=== PATIENT | female | born 1950 | race Caucasian/White ===

== ENCOUNTER 2019-06-16 13:39 | Inpatient (IN) | payer OTHER ==
[~2019-06-16] VITALS: Ht 157.5 cm; Wt 93.0 kg
[2019-06-16 13:47] VITALS: Ht 157.5 cm; Wt 93.0 kg
--- NOTE | 2019-06-16 14:03 | NUR ---
EKG IN PROGRESS
--- NOTE | 2019-06-16 14:03 | NUR ---
MSE COMPLETED BY DR BRAY
--- NOTE | 2019-06-16 14:28 | NUR ---
LAB BLOOD DRAW COMPLETED
--- NOTE | 2019-06-16 14:32 | NUR ---
PORTABLE CXR AT BEDSIDE
--- NOTE | 2019-06-16 14:35 | NUR ---
PT TO CT VIA BEAU
--- NOTE | 2019-06-16 14:50 | NUR ---
PT BACK FROM CT WITH NO INCIDENT
[2019-06-16 14:52] LABS: BASOPHIL % 0.1 % (0-2); PLATELET COUNT 331 x10^3mcL (130-400)
[2019-06-16 14:56] LABS: RED CELL DISTRIBUTION WIDTH 16.1 % (11.5-14.5)
--- NOTE | 2019-06-16 15:19 | NUR ---
IV ESTABLISHED, IVF INFUSION STARTED, INFUSING WITH NO PROBLEM. PT AAOX4 NO DISTRESS ON FULL CM WILL MONITOR
[2019-06-16 15:25] LABS: BILIRUBIN TOTAL 0.5 mg/dL (0.20-1.00); CALCIUM 9.1 mg/dL (8.5-10.1); CARBON DIOXIDE 38.6 mmol/L (21-32); CREATININE SERUM 2.6 mg/dL (0.6-1.0); TOTAL PROTEIN, SERUM 8.1 g/dL (6.4-8.2)
[2019-06-16 15:30] LABS: ALBUMIN 2.8 g/dL (3.4-5.0)
--- NOTE | 2019-06-16 17:00 | NUR ---
DR BRAY ADVISED OF PTS HR, NEW ORDER WILL BE ENTERED.
--- NOTE | 2019-06-16 17:17 | NUR ---
PT ASSISTED TO BATHROOM VOIDED X 1 UNABLE TO OBTAIN URINE SAMPLE WHEN PT WAS VOIDING.
[2019-06-16] MEDS ORDERED: LASIX20 MG (17:27)
[2019-06-16] MEDS ORDERED: NATURE'S BLEND500 M3 (17:27)
[2019-06-16] MEDS ORDERED: [UNRECOGNIZED DRUG - CODE] (17:28)
[2019-06-16] MEDS ORDERED: ENALAPRIL MALE2.5 MG (17:28)
[2019-06-16] MEDS ORDERED: HYDROCHLOROTHIA25 MG (17:28)
[2019-06-16] MEDS ORDERED: VITAMIN-D1000 IU (17:29)
[2019-06-16] MEDS ORDERED: TAMOXIFEN CITRA20 MG (17:29)
[2019-06-16] MEDS ORDERED: ASPIR 8181 MG (17:29)
--- NOTE | 2019-06-16 17:43 | NUR ---
PT TO TELE FLOOR VIA CORY IN NO DISTRESS ON FULL CM, NOEL RN RESUMING CARE OF PT
--- NOTE | 2019-06-16 17:45 | NUR ---
RECEIVED PT FROM ER. STABLE. DENIES ANY CHEST PAIN. APPLIED TELE READING AFIB WITH RVR, DR.KIM CASTRO AWARE. PT RECIVED CARDIZEM IV X2 DOSE IN ER. STARTING METOPROLOL PO SOON. NO SOB NOTED. NO DISTRESS NOTED.
[2019-06-16 18:52] VITALS: BP 112/74
--- NOTE | 2019-06-16 19:07 | NUR ---
RECEIVED PT FROM ER, PT ADMIT FOR ACUTE ABD PAIN, DIVERTILCULITIS, A.FIB. PT IS A/O X4, VERBAL RESPONSIVE. LUNG SOUND CLEAR BILATERAL, NO COUGH, NO SOB. PT IS ON TELE 2, A.FIB AND RVR AT THIS MOMENT, DENY ANY CHEST PAIN OR DISCOMFORT. BOWEL SOUND PRESENT ALL 4 QUADRANTS, NO DISTENTION, NO TENDER. PEDAL PULSE PRESENT BOTH FEET, +1 EDEMA BLE. BLE DARK DISCOLORATION NOTED. IV AT LEFT SHOULDER. DRESSING INTACT. ALL ADLS ASSIST, ALL NEED MET, CALL LIGHT IN REACH, WILL CONTINUE TO MONITOR.
--- NOTE | 2019-06-16 19:25 | NUR ---
PT IS STABLE. GAVE REPORT TO EDUCATION ASSOCIATE NURSE.
--- NOTE | 2019-06-16 20:07 | NUR ---
RECEIVED PATIENT IN BED AWAKE, ALERT AND ORIENTED WITH NO C/0 ABDOMINAL DISCOMFORT AT THIS TIME. ABDOMEN ROUND, OBESE AND NONTENDER WITH ACTIVE BS. TELE# 2 AFIB WITH RVR ON MONITOR, DENIES CHEST DISCOMFORT. WITH ADMISSION ORDWERS AND TO CARRY OUT. EDEMA +1 NOTED TO BLE. IV TO LEFT UPPER SHOULDER INTACT AND INFUSING WELL. WILL CONTINUE TO MONITOR. CALL LIGHT WITHIN REACH.
[2019-06-16 21:13] VITALS: BP 105/54
--- NOTE | 2019-06-17 00:42 | NUR ---
AWAKE C/O AGITATION, ATIVAN 1MG PO GIVEN PRESCRIBED. WILL CONTINUE TO MONITOR.
[2019-06-17 00:44] VITALS: BP 89/53
[2019-06-17 04:30] LABS: UA SPECIFIC GRAVITY <=1.005 (1.005-1.035); microscopic required? YES; urine erythrocyte 1+ (NEGATIVE)
--- NOTE | 2019-06-17 05:15 | NUR ---
SLEPT FAIRLY, HAD BM X1 LOOSE IN MODERATE AMOUNT. ALL NEEDS ATTENDED.
[2019-06-17 05:43] VITALS: BP 93/64
[2019-06-17 06:35] LABS: BASOPHIL % 0.4 % (0-2); PLATELET COUNT 258 x10^3mcL (130-400)
[2019-06-17 06:48] LABS: BILIRUBIN TOTAL 0.43 mg/dL (0.20-1.00); CALCIUM 7.8 mg/dL (8.5-10.1); CARBON DIOXIDE 35.9 mmol/L (21-32); CREATININE SERUM 2.1 mg/dL (0.6-1.0); MAGNESIUM 1.6 mg/dL (1.8-2.4); POTASSIUM SERUM 3.9 mmol/L (3.5-5.1)
[2019-06-17 06:49] LABS: RED CELL DISTRIBUTION WIDTH 16.3 % (11.5-14.5)
[2019-06-17 06:59] LABS: TOTAL PROTEIN, SERUM 6.1 g/dL (6.4-8.2)
--- NOTE | 2019-06-17 07:50 | NUR ---
RECEIVED PATIENT RESTING IN BED, NO ACUTE DISTRESS NOTED. PATIENT A/OX4, DENIES HEADACHE. TELE MONITOR IN PLACE. EDEMA NOTED TO BLE, PATIENT AWARE TO MAINTAIN BLE ELEVATED. PATIENT DENIES SOB, ON ROOM AIR. PATIENT AMBULATORY WITH NO ASSIST. IV TO L SHOULDER CDI&PATENT, NO S/S OF INFILTRATION. LR INFUSING AT 80ML/HR. CALL LIGHT WITHIN REACH, BED IN LOW POSITION. WILL CONTINUE TO MONITOR FOR CHANGES.
[2019-06-17 08:52] VITALS: BP 112/65
--- NOTE | 2019-06-17 09:30 | NUR ---
DR. GUERRIER MADE AWARE PATIENT DID NOT RECEIVE LOPRESSOR DURING NIGHT NURSE SHIFT DUE TO LOW BP; DR. GUERRIER GAVE VERBAL ORDER TO GIVE LOPRESSOR WITH SBP>80. WILL CARRY OUT ORDERS AND ENDORSE TO NIGHT RN.
--- NOTE | 2019-06-17 11:20 | NUR ---
DR. GUERRIER AWARE PATIENT MAG WAS 1.7, DR. GUERRIER ORDER MAG RIDER. MAG RIDER GIVEN AT THIS TIME. WILL CONTINUE TO MONITOR.
[2019-06-17 11:34] VITALS: BP 109/77
--- NOTE | 2019-06-17 12:20 | NUR ---
DR. GUERRIER AWARE PATIENT IS C/O CONTINOUS LOOSE STOOLS, PATIENT REQUESTED FOR SHOWER. DR. GUERRIER GAVE VERBAL ORDER FOR OKAY TO SHOWER, WILL CARRY OUT ORDERS AT THIS TIME.
--- NOTE | 2019-06-17 12:21 | NUR ---
PER DR. GUERRIER, PATIENT OKAY TO SHOWER.
[2019-06-17 17:31] VITALS: BP 128/57
--- NOTE | 2019-06-17 18:00 | NUR ---
MEDICATIONS GIVEN AT THIS TIME, PATIENT TOLERATED PO MEDS. PATIENT DENIES CHEST PAIN. NO ACUTE DISTRESS NOTED, PATIENT ON ROOM AIR. IV TO L SHOULDER CDI&PATENT, ALBUMIN INFUSING AT THIS TIME. ALL NEEDS MET AT THIS TIME. CALL LIGHT WITHIN REACH, WILL ENDORSE REPORT TO NIGHT RN.
--- NOTE | 2019-06-17 19:05 | NUR ---
REPORT RECEIVED FROM DAY SHIFT RN. PATIENT WAS SEEN RESTING IN BED COMFORTABLY. NO DISTRESS NOTED. BREATHING EVEN AND UNLABORED ON ROOM AIR. NO SOB OR RESP DISTRESS NOTED. NO C/O PAIN. DENIES CHEST PAIN. IV TO THE LEFT SHOULDER. PATENT AND INTACT. NO REDNESS OR SWELLING NOTED. COMFORT AND SAFETY MEASURES IN PLACE. CALL LIGHT IS WITHIN REACH. WILL CONTINUE TO MONITOR.
[2019-06-17 20:12] VITALS: BP 99/58
--- NOTE | 2019-06-18 00:46 | NUR ---
PATIENT SITTING ON BEDSIDE CHAIR. NO DISTRESS NOTED. BREATHING EVEN AND UNLABORED. NO SOB NOTED. DENIES PAIN. SAFETY MEASURES IN PLACE. WILL CONTINUE TO MONITOR.
--- NOTE | 2019-06-18 03:20 | NUR ---
PATIENT ASKING TO TALK TO THE DOCTOR ABOUT HER EGD RESULTS. INFORMED PATIENT THAT IS NOT HERE AT THIS TIME AND DOCTORS WILL INFORM HER ABOUT THE RESULTS THIS MORNING. PATIENT WAS ANGRY. ON ROOM AIR. OFFERED NC X2, BUT PATIENT REFUSED. DENIES PAIN. NO DISTRESS NOTED. WILL CONTINUE TO MONITOR
[2019-06-18 05:34] VITALS: BP 114/73
[2019-06-18 06:25] LABS: BASOPHIL % 0.2 % (0-2); PLATELET COUNT 230 x10^3mcL (130-400)
--- NOTE | 2019-06-18 06:50 | NUR ---
RESTING IN LONG INTERVALS THROUGHOUT THE NIGHT. NO ACUTE CHANGES NOTED. BREATHING EVEN AND UNLABORED. NO SOB NOTED. NO DISTRESS NOTED. SAFETY MEASURES IN PLACE. ALL NEEDS AND CONCERNS ADDRESSED. CALL LIGHT IS WITHIN REACH. WILL ENDORSE CARE TO DAY SHIFT RN.
--- NOTE | 2019-06-18 07:20 | NUR ---
PT IS AAOX4. ATMAUTLUAK BILATERALLY. TELE [address] READING AFIB WITH RVR, HR 120. PT DENIES C/P, PRESSURE AND PALPITATIONS AT THIS TIME. LUNG SOUNDS CTA, ON R/A. NO COUGH OR SOB NOTED. BOWEL SOUNDS ACTIVE X 4 QUADS. DENIES N/V/D AND CONSTIPATION AT THIS TIME. SKIN CDI. PERIPHERAL PULSES MODERATELY PALPABLE. PT HAS BLE 1+ EDEMA. CAP REFILL < 3 SECS. IV CATH IN L UPPER SHOULDER, FLUSHED, PATENT AND WNL. COVERED WITH CDI OCCLUSIVE DRESSING. PT DENIES PAIN AT THIS TIME. CALL LIGTH WITHIN REACH. BED IN LOWEST POSITION.
[2019-06-18 07:21] LABS: BILIRUBIN TOTAL 0.6 mg/dL (0.20-1.00); CALCIUM 8.5 mg/dL (8.5-10.1); CARBON DIOXIDE 35.5 mmol/L (21-32); CREATININE SERUM 1.8 mg/dL (0.6-1.0); MAGNESIUM 2.9 mg/dL (1.8-2.4); POTASSIUM SERUM 3.5 mmol/L (3.5-5.1); TOTAL PROTEIN, SERUM 7.1 g/dL (6.4-8.2)
[2019-06-18 07:22] LABS: ALBUMIN 3.3 g/dL (3.4-5.0)
[2019-06-18 07:42] LABS: RED CELL DISTRIBUTION WIDTH 15.9 % (11.5-14.5)
[2019-06-18 08:03] VITALS: BP 103/64
--- NOTE | 2019-06-18 09:10 | NUR ---
REPORTED TO DR. FIGUEREDO MAG 2.9. NO NEW ORDERS AT THIS TIME.
--- NOTE | 2019-06-18 12:15 | NUR ---
METOPROLOL PO GIVEN AND TOLERATED WELL. B/P 111/66 (81), HR 118. RESP EVEN AND UNLABRORED. PT DENIES PAIN AND DISCOMFORT. PT IS SITTING IN CHAIR AT BEDSIDE. NO DISTRESS NOTED.
[2019-06-18 12:38] VITALS: BP 97/57
--- NOTE | 2019-06-18 14:49 | NUR ---
PT ASSISTED TO BATHROOM AND BACK TO BED. PT HAS SMALL SOFT BM. SCHEDULED MEDS GIVEN AND TOLERATED WELL. PT DENIES PAIN AT THIS TIME.
[2019-06-18 16:12] VITALS: BP 111/62
--- NOTE | 2019-06-18 17:43 | NUR ---
4TH ALBUMIN IV GIVEN OUT OF 6. LOPRESSOR GIVEN AND TOLERATED WELL. B/P 107/71 (80), HR 118. PT DENIES PAIN AT THIS TIME. NO DISTRESS NOTED. PT SITTING IN CHAIR AT BEDSIDE EATING DINNER. CALL LIGHT WITHIN REACH.
--- NOTE | 2019-06-18 18:15 | NUR ---
PT IS AAOX4. TELE [address] READING AFIB WITH RVR, HR 118. IV CATH TO L SHOULDER, SITE WNL, S/L. NO S/S OF INFECTION OR INFILTRATION. RESP EVEN AND UNLABORED. NO DISTRESS NOTED. PT DENIES PAIN AT THIS TIME. CALL LIGHT WITHIN REACH. WILL ENDORSE ALL CARE TO NOC RN.
--- NOTE | 2019-06-18 19:10 | NUR ---
REPORT RECEIVED FROM DAY SHIFT RN. PATIENT WAS SEEN RESTING COMFORTABLY IN BED. NO DISTRESS NOTED. BREATHING EVEN AND UNLABORED ON ROOM AIR. NO SOB OR RESP DISTRESS NOTED. DENIES CHEST PAIN/PRESSURE. NO C/O PAIN. IV TO THE LEFT SHOULDER, 22G, SALINE LOCK. PATENT AND INTACT. NO REDNESS OR SWELLING NOTED. COMFORT AND SAFETY MEASURES IN PLACE. BED IS LOCKED AND IN THE LOWEST POSITION. SIDE RAILS UP X2. CALL LIGHT IS WITHIN REACH. WILL CONTINUE TO MONITOR.
[2019-06-18 19:59] VITALS: BP 97/55
--- NOTE | 2019-06-18 21:15 | NUR ---
PATIENT REPORTED IV TO THE LEFT SHOULDER HAD BURINING SENSATION WHEN FLUSHED. IV REMOVED. NEW IV PLACED TO LW, 22G. PATENT AND INTACT. FLUSHES WELL. DENIES PAIN AT THE SITE. INFUSING CIPRO WELL. SAFETY MEASURES IN PLACE. WILL CONTINUE TO MONITOR.
--- NOTE | 2019-06-18 21:15 | NUR ---
PATIENT REPORTED IV TO THE LEFT SHOULDER HAD BURINING SENSATION WHEN FLUSHED. IV REMOVED. NEW IV PLACED TO , 22G. PATENT AND INTACT. FLUSHES WELL. DENIES PAIN AT THE SITE. INFUSING CIPRO WELL. SAFETY MEASURES IN PLACE. WILL CONTINUE TO MONITOR.
--- NOTE | 2019-06-19 02:06 | NUR ---
LAYING IN BED WITH EYES CLOSED. NO DISTRESS NOTED. ON BIPAP. NO S/S OF PAIN NOTED. BREATHING EVEN AND UNLABORED. SAFETY MEASURES IN PLACE. CALL LIGHT IS WITHIN REACH. WILL CONTINUE TO MONITOR.
[2019-06-19 04:54] VITALS: BP 100/63
[2019-06-19 06:18] LABS: BASOPHIL % 0.4 % (0-2); PLATELET COUNT 206 x10^3mcL (130-400)
[2019-06-19 06:30] LABS: RED CELL DISTRIBUTION WIDTH 16.4 % (11.5-14.5)
--- NOTE | 2019-06-19 06:30 | NUR ---
RESTING IN BED AT THIS TIME. NO ACUTE CHANGES NOTED. BREATHING EVEN AND UNLABORED ON ROOM AIR. NO C/O PAIN. IV TO THE RH PATENT AND INTACT. NO DISTRESS NOTED. SAFETY MEASURES IN PLACE. CALL LIGHT IS WITHIN REACH. ALL NEEDS AND CONCERNS ADDRESSED. WILL ENDORSE CARE TO DAY SHIFT RN.
[2019-06-19 07:07] LABS: ALBUMIN 3.6 g/dL (3.4-5.0); BILIRUBIN TOTAL 0.55 mg/dL (0.20-1.00); CALCIUM 8.4 mg/dL (8.5-10.1); CARBON DIOXIDE 35.6 mmol/L (21-32); CREATININE SERUM 1.6 mg/dL (0.6-1.0); MAGNESIUM 2.4 mg/dL (1.8-2.4); POTASSIUM SERUM 3.4 mmol/L (3.5-5.1); TOTAL PROTEIN, SERUM 6.8 g/dL (6.4-8.2)
--- NOTE | 2019-06-19 07:30 | NUR ---
PT IS AAOX4. TELE [address] READING AFIB WITH RVR, HR 101. PT BLE +1 EDEMA. PERIPHERAL PULSES PALPABLE. CAP REFILL <3 SECS. IV CATH TO LH PATENT, SITE WNL. RESP EVEN AND UNLABORED. ON R/A. LUNG SOUNDS CTA. ABDOMEN ROUND, NONTENDER, NONDISTENDED. BOWEL SOUNDS ACTIVE X4 QUADS. PT HAS C/O DIARRHEA. DENIES N/V. PT DENIES PAIN AT THIS TIME. CALL LIGHT WITHIN REACH. BED IN LOWEST POSITION.
[2019-06-19 08:29] VITALS: BP 94/50
[2019-06-19 09:13] VITALS: BP 94/50
[2019-06-19] MEDS ORDERED: FLA500 PO (09:20)
[2019-06-19] MEDS ORDERED: CIPRO500 MG PO (09:20)
--- NOTE | 2019-06-19 10:14 | NUR ---
KLOR CON PO GIVEN FOR K+ = 3.4. ALBUMIN IVPB 11/21 GIVEN. DUE MED GIVEN AND TOLERATED WELL. PT SITTING IN BEDSIDE CHAIR. NO DISTRESS NOTED. DENIES PAIN. CALL LIGHT WITHIN REACH.
--- NOTE | 2019-06-19 12:29 | NUR ---
PT INFORMED SHE WILL BE DISCHARGED TODAY. PT STATED HER DAUGHTER WILL PICK HER UP AT 1600 TODAY.
[2019-06-19 12:47] VITALS: BP 104/60
--- NOTE | 2019-06-19 12:56 | NUR ---
LOPRESSOR PO GIVEN, B/P , HR 107. PT DENIES PAIN. CALL LIGHT WITHIN REACH.
--- NOTE | 2019-06-19 13:32 | NUR ---
SCHEDULED MEDS GIVEN AND TOLERATED WELL. PT DENIES PAIN. NO DISTRESS NOTED. PT IS SITTING IN BED SIDE CHAIR WATCHING TV. CALL LIGHT WITHIN REACH.
--- NOTE | 2019-06-19 15:10 | NUR ---
REPORTED TO DR. FIGUEREDO, PT'S CREATININE LEVEL IS 1.6 AND PT WILL DISCHARGE TODAY. NO NEW ORDERS.
--- NOTE | 2019-06-19 16:55 | NUR ---
PT DISCHARGED TO HOME IN NO DISTRESS. DISCHARGE INSTRUCTIONS REVIEWED ALL QUESTIONS ANSWERED. RX GIVEN TO PT. IV CATH TO LH REMOVED INTACT, SITE COVERED WITH CDI GAUZE AND BANDAID. NO S/S OF INFECTION NOTED. TELE 2 REMOVED FROM PT AND RETURNED TO BLOCK CABLEMAN. VS: T 97.4, HR 112, RR 19, B/P 104/60, O2 SAT AT 94% ON R/A. PT DENIES PAIN AND DISCOMFORT AT TIME OF DISCHARGE. ALL PERSONAL BELONGINGS TAKEN WITH PT.
== END 2019-06-19 17:00 | disposition home or self-care (01) | DRG 244 ==
LOC: ED 13:39 → DU 16:03
PROVIDERS: Emergency Medicine; ADMIT Internal Medicine Pulmonary Disease
DX: K57.32 Diverticulitis of large intestine without perforation or abscess without bleeding (principal); N17.0 Acute kidney failure with tubular necrosis; I48.20 Chronic atrial fibrillation, unspecified; E11.22 Type 2 diabetes mellitus with diabetic chronic kidney disease; E86.0 Dehydration; E66.9 Obesity, unspecified; F17.210 Nicotine dependence, cigarettes, uncomplicated; N17.9 Acute kidney failure, unspecified; I12.9 Hypertensive chronic kidney disease with stage 1 through stage 4 chronic kidney disease, or unspecified chronic kidney disease; N18.9 Chronic kidney disease, unspecified; Z68.39 Body mass index [BMI] 39.0-39.9, adult; Q63.1 Lobulated, fused and horseshoe kidney; Z79.84 Long term (current) use of oral hypoglycemic drugs
CPT/HCPCS: 83880; G0378; J0744; J1644; J1956; J3475; J3490; J7030; J7040; J7120; P9047; Q0092